=== PATIENT | male | born 1990 | race Asian ===

== ENCOUNTER 2018-07-19 10:37 | Day surgery (SDC) | payer OTHER ==
[2018-07-18 15:02] VITALS: BMI 25.0
[2018-07-19] MEDS ORDERED: Scopolamine 1.5 mg/72 hour Patch ONE (11:11)
[2018-07-19] MEDS ORDERED: Oxymetazoline HCl 0.05% ( 15 ML ) ONE (11:24)
[2018-07-19] MEDS ORDERED: Lidocaine 1% w/Epinephrine 1:100K 20 ML VIAL ONE (12:04)
[2018-07-19] MEDS ORDERED: EPINEPHrine 1 MG/ML AMP ONE (12:04)
[2018-07-19] MEDS ORDERED: Fentanyl 100 MCG/2 ML VIAL ONE ×2 (12:07→13:27)
[2018-07-19] MEDS ORDERED: methylPREDNISolone Acetate 40 mg/ml Vial ONE (12:07)
[2018-07-19] MEDS ORDERED: diphenhydrAMINE 50 MG/ML VIAL ONE (14:03)
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
[2018-07-19] MEDS ORDERED: diphenhydrAMINE 50 MG/ML VIAL IVP SCH (14:30)
[2018-07-19] MEDS ORDERED: HYDROcodone/Acetaminophen 5/325 mg Tablet ONE (14:42)
== END 2018-07-19 15:10 | disposition home or self-care (01) ==
LOC: SDC 10:37
PROVIDERS: ATTEND Specialist
PROC: 097G8ZZ Dilation of Left Eustachian Tube, Via Natural or Artificial Opening Endoscopic (ICD-10-PCS; principal; 2018-07-19)
DX: H69.82 Other specified disorders of Eustachian tube, left ear (principal); H91.90 Unspecified hearing loss, unspecified ear
CPT/HCPCS: J0171; J1030; J1200; J2001; J3010